=== PATIENT | male | born 1940 | race Caucasian/White ===

== ENCOUNTER → 2024-09-12 | Outpatient (CLI) | payer MEDICARE, BC, SELFPAY ==
[2024-09-12 14:45] LABS: Misc Send Out* See Sep Rpt
[2024-09-12 16:08] LABS: Basophils # (Auto) 0.1 Thou/mm3 (0.0-0.2); Basophils % (Auto) 1 % (0-2.5); Eosinophils # (Auto) 0.3 Thou/mm3 (0.0-0.5); Eosinophils % (Auto) 5 % (0-10); Hemoglobin 14.6 g/dL (13.5-16.0); Immature Granulocytes % (Auto) 0 % (0-0); Immature Granulocytes Auto 0.02 Thou/mm3 (0.00-0.00); Lymphocytes % (Auto) 14 % (10-50); Mean Corpuscular Hemoglobin 30.7 pg (25.0-35.0); Mean Corpuscular Volume 90 fL (80-100); Monocytes # (Auto) 0.7 Thou/mm3 (0.0-0.8); Monocytes % (Auto) 11 % (0-12); Neutrophils # (Auto) 4.5 Thou/mm3 (1.8-7.7); Neutrophils % (Auto) 69 % (37-80); Nucleated Red Blood Cell % 0 /100 WBC (0); Platelet Count 376 Thou/mm3 (140-440); RDW Standard Deviation 40.7 fL (35.1-43.9); Red Blood Count 4.76 Miln/mm3 (4.50-5.90); White Blood Count 6.6 Thou/mm3 (3.8-10.6)
[2024-09-12 17:09] LABS: Folate > 24.00 ng/mL (>5.38); Vitamin B12 530 pg/mL (211-911)
[2024-09-19 06:27] LABS: Vitamin B1 (Thiamine)* 10 nmol/L (8-30)
[2024-10-03 09:08] LABS: Homocysteine* 21.3 umol/L (<11.4); Methylmalonic Acid, GC/MS/MS* 515 nmol/L (85-423); Zinc, Plasma* 53 mcg/dL (60-130)
== END | disposition home or self-care (01) ==
LOC: COPL 14:13
PROVIDERS: PCP Nurse Practitioner Family; Referring Provider Nurse Practitioner Family; Visit Provider Nurse Practitioner Family
DX: R53.82 Chronic fatigue, unspecified (principal); R63.0 Anorexia
CPT/HCPCS: 36415; 82607; 82746; 83090; 83520; 83921; 84425; 84630; 85025

== ENCOUNTER → 2024-09-27 | Outpatient (CLI) | payer MEDICARE, BC, SELFPAY ==
[2024-09-27 15:16] LABS: Cholesterol 188 mg/dL (132-200); Glucose Estimated Average 120 mg/dL (80-131); HDL Cholesterol 93 mg/dL (40-60); Hemoglobin A1C 5.8 % Hgb (4.8-6.0); LDL Cholesterol,Calculated 44 mg/dL (0-130); Magnesium 2.3 mg/dL (1.6-2.6); Triglycerides 256 mg/dL (30-150)
[2024-09-27 15:18] LABS: Vitamin D 25 Hydroxy Total 21.9 ng/mL (7.3-40.2)
[2024-09-27 15:18] LABS: Creatinine MALB Rnd Ur 21 mg/dL (30-125); Microalbumin, Random Urine < 3 mg/L (0-300)
[2024-09-27 15:20] LABS: Ferritin 314 ng/mL (10.5-307.3); PSA Medicare Annual Scrn 1.91 ng/mL (0-4.00)
== END | disposition home or self-care (01) ==
LOC: COPL 14:03
PROVIDERS: PCP Nurse Practitioner Family; Referring Provider Nurse Practitioner Family; Visit Provider Nurse Practitioner Family
DX: I10 Essential (primary) hypertension (principal); E78.5 Hyperlipidemia, unspecified; Z12.5 Encounter for screening for malignant neoplasm of prostate; R79.9 Abnormal finding of blood chemistry, unspecified
CPT/HCPCS: 36415; 80061; 82043; 82306; 82570; 82728; 83036; 83735; 84153; G0103

== ENCOUNTER → 2024-09-30 | Outpatient (CLI) | payer MEDICARE, BC, SELFPAY ==
[2024-09-30 10:37] LABS: Misc Send Out* See Sep Rpt
== END | disposition home or self-care (01) ==
LOC: COPL 10:22
PROVIDERS: PCP Family Medicine; Referring Provider Nurse Practitioner Family; Visit Provider Nurse Practitioner Family
DX: R79.9 Abnormal finding of blood chemistry, unspecified (principal)
CPT/HCPCS: 84255; 84590

== ENCOUNTER → 2024-10-01 | Outpatient (CLI) | payer MEDICARE, BC, SELFPAY ==
[2024-10-04 06:44] LABS: Fecal Globin Result DETECTED (NOT DETECTED)
== END | disposition home or self-care (01) ==
LOC: SLDO 08:06
PROVIDERS: PCP Family Medicine; Referring Provider Nurse Practitioner Family; Visit Provider Nurse Practitioner Family
DX: Z12.11 Encounter for screening for malignant neoplasm of colon (principal)
CPT/HCPCS: 82274; G0328

== ENCOUNTER → 2024-10-18 | Outpatient (CLI) | payer MEDICARE, SELFPAY ==
[2024-10-28 06:42] LABS: Calprotectin, Stool* 26 mcg/g; Fecal Globin Result NOT DETECTED (NOT DETECTED)
== END | disposition home or self-care (01) ==
LOC: SLDO 12:03
PROVIDERS: Referring Provider Nurse Practitioner Family; Visit Provider Nurse Practitioner Family
DX: R19.5 Other fecal abnormalities (principal)
CPT/HCPCS: 82274; 83993; G0328

== ENCOUNTER → 2024-12-25 | Outpatient (CLI) | payer MEDICARE, BC, SELFPAY ==
[2024-12-29 13:47] LABS: PSA, Free <0.10 ng/mL; PSA, Total 0.9 ng/mL (< OR = 4.0)
== END | disposition home or self-care (01) ==
LOC: COPL 10:21
PROVIDERS: PCP Family Medicine; Referring Provider Urology; Visit Provider Urology
DX: N40.1 Benign prostatic hyperplasia with lower urinary tract symptoms (principal)
CPT/HCPCS: 36415; 84153; 84154

== ENCOUNTER → 2025-01-03 | Outpatient (BNVA) | payer MEDICARE, BC, SELFPAY | END | disposition home or self-care (01) | PROVIDERS: PCP Internal Medicine; Referring Provider Internal Medicine; Visit Provider Urology | DX: Z09 Encounter for follow-up examination after completed treatment for conditions other than malignant neoplasm (principal); E78.5 Hyperlipidemia, unspecified; K21.9 Gastro-esophageal reflux disease without esophagitis | CPT/HCPCS: 81003; 99212; G0463 ==

== ENCOUNTER 2025-08-14 08:36 | Emergency (ER) | payer MEDICARE, BC, SELFPAY ==
--- NOTE | 2025-08-14 | XR_ITS ---
Examination: MRI left foot, without contrast Date and time of exam: August 14, 2025, 1419 hours INDICATIONS: Left foot pain 2 weeks, swelling and pain involving the third digit, plain film left foot this morning osteomyelitis involving the third metatarsal head Technique: Multiple axial sagittal and coronal images of the left foot have been obtained with the Siemens high-resolution 1.5 Sari MRI scanner. Images obtained include T2-weighted fat-suppressed sagittal sections, TR 3500, TE 46, T2 weighted coronal fat suppressed images, TR 3050, TE 84, T2-weighted transverse fat suppressed images, TR 3260, TE 63, proton density transverse images, TR 4720 TE 46, and T1 weighted coronal images, TR 560, TE 13. Findings: Cortical erosions destroying the third metatarsal head, axial image 13, sagittal image 15 No soft tissue abscess Digits appear intact Plantar fascia intact Thickening of the Achilles tendon Sinus Tarsi syndrome IMPRESSION: Cortical bone destruction consistent with osteomyelitis third metatarsal head
[2025-08-14 08:41] VITALS: BP 175/85; PULSE 80; RESP 18; TEMP 36.9; O2SAT 95; BMI 22.6
--- NOTE | 2025-08-14 08:45 | XR_ITS ---
Examination: Duplex scan of the lower extremity, unilateral left complete Date and time of exam: August 14, 2025, 10:21 a.m. INDICATIONS: Left foot pain beginning 3 weeks ago Technique: Duplex scan of the extremity veins using B-mode/grayscale imaging and Doppler spectral analysis and color flow Attention is directed to internal echogenicity, compression and augmentation involving these veins, color flow assessment, spectral analysis Findings: Major deep venous structures in the extremity demonstrate normal course and caliber. There is no evidence of deep vein thrombosis. Normal color flow and spectral analysis Impression: Negative for DVT..
--- NOTE | 2025-08-14 08:45 | XR_ITS ---
EXAMINATION: Ankle, left 3 views. Technique: Ankle AP, oblique, lateral 3 views Date and time of exam: August 14, 2025, 0855 hours INDICATION: Left ankle pain for 2 weeks FINDINGS: Bimalleolar soft tissue swelling No fracture Soft tissue vascular calcification IMPRESSION: No fracture, no cortical bone destruction
--- NOTE | 2025-08-14 08:45 | XR_ITS ---
Examination: Foot, left, 3 views Technique: AP, oblique, lateral views foot, 3 views Date and time of exam: August 14, 2025, 0855 hours INDICATIONS: Left foot pain 2 weeks FINDINGS: Prominent hallux valgus and bunion deformity with moderate osteoarthritis first metatarsophalangeal joint Erosions involving the distal third metatarsal head No fracture Soft tissue vascular calcification IMPRESSION: Osteomyelitis involving the third metatarsal head, suggest MRI foot without contrast follow-up
--- NOTE | 2025-08-14 10:08 | PD.EDRME ---
Rapid Medical Screening Exam RME Arrival date/time: 08/14/25 08:36 85-year-old male presents Emergency Department today for complaint of atraumatic left foot pain x 2 weeks Chief Complaint: Ankle/Foot Injury Time Seen by Provider: 08/14/25 08:42 Vital signs: Vital Signs Temperature 98.5 F 08/14/25 08:41 Pulse Rate 80 08/14/25 08:41 Respiratory Rate 18 08/14/25 08:41 Blood Pressure 175/85 H 08/14/25 08:41 Pulse Oximetry (%) 95 08/14/25 08:41 Oxygen Delivery Method Room Air 08/14/25 08:41 Vital signs reviewed by provider: Yes Exam: On exam patient well-appearing does not appear ill or toxic Clinical Impression: Lab work and imaging ordered
[2025-08-14 10:50] LABS: Lactate (Lactic Acid) 2.6 mMol/L (0.4-2.0)
[2025-08-14 10:51] LABS: Basophils # (Auto) 0.1 Thou/mm3 (0.0-0.2); Basophils % (Auto) 1 % (0-2.5); Eosinophils # (Auto) 0.2 Thou/mm3 (0.0-0.5); Eosinophils % (Auto) 2 % (0-10); Hematocrit 46.4 % (41.0-53.0); Hemoglobin 15.3 g/dL (13.5-16.0); Immature Granulocytes Auto 0.03 Thou/mm3 (0.00-0.00); Lymphocytes # (Auto) 1.4 Thou/mm3 (1.0-4.8); Lymphocytes % (Auto) 14 % (10-50); Mean Corpuscular HGB Conc 33.0 g/dl (31.0-37.0); Mean Corpuscular Hemoglobin 30.7 pg (25.0-35.0); Mean Corpuscular Volume 93 fL (80-100); Monocytes # (Auto) 0.9 Thou/mm3 (0.0-0.8); Monocytes % (Auto) 9 % (0-12); Neutrophils # (Auto) 7.0 Thou/mm3 (1.8-7.7); Neutrophils % (Auto) 74 % (37-80); Nucleated Red Blood Cell # 0.00 Thou/mm3 (0.00-0.00); Nucleated Red Blood Cell % 0 /100 WBC (0); Platelet Count 215 Thou/mm3 (140-440); RDW Standard Deviation 47.8 fL (35.1-43.9); Red Blood Count 4.98 Miln/mm3 (4.50-5.90); White Blood Count 9.5 Thou/mm3 (3.8-10.6)
[2025-08-14 10:57] VITALS: BP 190/96; PULSE 79; RESP 16; TEMP 37.1; O2SAT 97
[2025-08-14 11:07] LABS: INR 1.0 (0.9-1.3); Prothrombin Time 10.3 Seconds (9.0-12.2)
[2025-08-14 11:30] LABS: Alanine Aminotransferase 16 U/L (10-49); Albumin, Serum 4.0 gm/dL (3.4-4.8); Albumin/Globulin Ratio 2.4 (1.2-2.2); Alkaline Phosphatase 107 U/L (46-116); Anion Gap 9 (7-16); Aspartate Amino Transferase 28 U/L (0-34); BUN/Creatinine Ratio 7 Ratio (12-20); Bilirubin,Total 0.4 mg/dL (0.3-1.2); Blood Urea Nitrogen 6 mg/dL (9-23); C-Reactive Protein < 0.5 mg/dL (0.0-0.9); Calcium 8.6 mg/dL (8.3-10.6); Calcium (Corrected) 8.6 mg/dL (8.5-10.1); Carbon Dioxide 28.5 mMol/L (20.0-31.0); Chloride 104 mMol/L (98-107); Creatinine (Component) 0.9 mg/dL (0.6-1.3); Estimated Creatinine Clearance 55.9 mL/min (>60); Globulin 1.7 gm/dL (2.3-3.5); Glucose 74 mg/dL (74-106); Osmolality,Calculated 277 (275-295); Potassium 4.1 mMol/L (3.4-5.1); Procalcitonin 0.10 ng/ml (0.0-0.49); Sodium 141 mMol/L (136-145); Total Protein 5.7 gm/dL (5.7-8.2); eGFR > 60 See Note
[2025-08-14 12:27] LABS: Sed Rate (ESR) 10 mm/hr (0-20)
[2025-08-14 13:48] LABS: Reflex Lactate? Y
[2025-08-14 15:34] VITALS: BP 157/102; PULSE 85; RESP 18; TEMP 37.1; O2SAT 98
[2025-08-14 15:42] LABS: Lactic Acid, 3 HR 2.5 mMol/L (0.4-2.0)
[2025-08-14 15:57] VITALS: BP 147/78
--- NOTE | 2025-08-14 16:35 | EDNOTE_ITS ---
Lower Extremity Injury RME/HPI General Chief Complaint: Ankle/Foot Injury Stated Complaint: LEFT FOOT PAIN. UNKNOWN INJURY Time Seen by Provider: 08/14/25 08:42 Arrival date/time: 08/14/25 08:36 Limitations: no limitations RME / HPI RME / HPI Narrative: 08/14/25 08:36 85-year-old male presents Emergency Department today for complaint of atraumatic left foot pain x [address] RIVERA MAIN ED EVALUATION: 85 year old male with history of GERD presents to the ED for evaluation of left foot pain beginning 2 weeks ago. Pain described as aching in sensation that moves up to the ankle area, rating as moderate. Denies any injuries or history of similar pain. No other associated symptoms or complaints. Exam: On exam patient well-appearing does not appear ill or toxic Impression: Lab work and imaging ordered Related Data Previous Rx's ?Medication ?Instructions ?Recorded amoxicillin 875 mg-potassium 1 tab PO BID INFECTION #2 0 tabs 08/14/25 clavulanate 125 mg tablet hydrocodone 5 mg-acetaminophen 325 1 tab PO Q8H PRN pa in #14 tabs 08/14/25 mg tablet Allergies Allergy/AdvReac Type Severity Reaction Status Date / Time NKA* Allergy Uncoded 08/14/25 08:37 Review of Systems Review of Systems Systems Reviewed: All systems reviewed, normal except as documented Past Medical History Past Medical History RESPIRATORY: Positive Respiratory Disorders ENT: Positive Cataracts OTHER HISTORY: Positive Chicken Pox Social History SMOKING STATUS: Never smoker ED Exam General Limitations: Present no limitations General appearance: Present alert and in no apparent distress Head Head exam: Present atraumatic, normocephalic and normal inspection Eye Eye exam: Present normal appearance and EOMI ENT ENT exam: Present normal exam, normal oropharynx and mucous membranes moist Neck Neck exam: Present normal inspection, full ROM and trachea midline Chest Chest inspection: Present normal inspection Respiratory Respiratory exam: Present normal lung sounds bilaterally Cardiovascular Cardiovascular exam: Present regular rate and normal rhythm Extremities Exam Extremities exam: Present full ROM and other (Left foot with good capillary refill, sensation intact, dorsalis pedis pulse 1+, pain in the plantar surface, tenderness palpable at the ball of the foot) Back Exam Back exam: Present normal inspection and full ROM Neurological Exam Neurological exam: Present alert, oriented X3 and CN II-XII intact Psychiatric Psychiatric exam: Present normal affect and normal mood Skin Skin exam: Present warm, dry, intact and normal color Course Quality Measures none Orders Category Date Time Status MRI Screening NOW Care 08/14/25 12:08 Completed MR foot LT wo con Stat Exams 08/14/25 Completed US venous doppler LE LT Stat Exams 08/14/25 08:45 Completed XR ankle comp LT min 3V Stat Exams 08/14/25 08:45 Completed XR foot comp LT min 3V Stat Exams 08/14/25 08:45 Completed Blood Culture (Lab) Stat Lab 08/14/25 10:38 Received CBC Stat Lab 08/14/25 10:38 Completed CMP [Comprehensive Metabolic Panel] Stat Lab 08/14/25 10:38 Completed CRP [C-Reactive Protein] Stat Lab 08/14/25 10:38 Completed ESR [Sed Rate (ESR)] Stat Lab 08/14/25 10:38 Completed Lactic Acid [Lactate (Lactic Acid)] Stat Lab 08/14/25 10:38 Completed Lactic Acid, 3 HR Stat Lab 08/14/25 15:30 Completed PT [Prothrombin Time with INR] Stat Lab 08/14/25 10:38 Completed Procalcitonin Stat Lab 08/14/25 10:38 Completed Vital Signs Vital signs: Vital Signs Temperature 98.5 F 08/14/25 08:41 Pulse Rate 80 08/14/25 08:41 Respiratory Rate 18 08/14/25 08:41 Blood Pressure 175/85 H 08/14/25 08:41 Pulse Oximetry (%) 95 08/14/25 08:41 Oxygen Delivery Method Room Air 08/14/25 08:41 Pulse ox is 95% on room air which is adequate. Extremity Injury, Lower MDM Narrative MDM Narrative:: Oneyda Sue am scribing for and in the presence of Dr. Rivera. Patient data External records reviewed:: [facility] previous records Clinical information provided by:: patient Social determinants that could affect healthcare access:: none Patient has the following chronic illnesses:: GERD How is presenting disease/condition affected by chronic disease/condition?: uneffected by Evaluation data The following diagnostics were reviewed and interpreted by me:: lab results and radiology exam(s) Lab and/or radiology exams considered but not ordered:: None Interpretation Summary: Ordering Physician: Jah Rivera MD Date of Service: 08/14/25 Procedure(s): MR foot LT wo con Accession Number(s): [id number] cc: Sinan Marina; Jah Rivera MD; Bertram Roman MD~ Examination: MRI left foot, without contrast Date and time of exam: August 14, 2025, 1419 hours INDICATIONS: Left foot pain 2 weeks, swelling and pain involving the third digit, plain film left foot this morning osteomyelitis involving the third metatarsal head Technique: Multiple axial sagittal and coronal images of the left foot have been obtained with the Siemens high-resolution 1.5 Sari MRI scanner. Images obtained include T2-weighted fat-suppressed sagittal sections, TR 3500, TE 46, T2 weighted coronal fat suppressed images, TR 3050, TE 84, T2-weighted transverse fat suppressed images, TR 3260, TE 63, proton density transverse images, TR 4720 TE 46, and T1 weighted coronal images, TR 560, TE 13. Findings: Cortical erosions destroying the third metatarsal head, axial image 13, sagittal image 15 No soft tissue abscess Digits appear intact Plantar fascia intact Thickening of the Achilles tendon Sinus Tarsi syndrome IMPRESSION: Cortical bone destruction consistent with osteomyelitis third metatarsal head Dictated By: Bertram Roman MD Signed By: <Electronically signed by Bertram Roman MD in OV> 08/14/25 1455 Ordering Physician: Maricruz ADAM)Jens NP Date of Service: 08/14/25 Procedure(s): XR ankle comp LT min 3V Accession Number(s): [id number] cc: Sinan Marina; Maricruz ADAM)Jens NP; Bertram Roman MD~ EXAMINATION: Ankle, left 3 views. Technique: Ankle AP, oblique, lateral 3 views Date and time of exam: August 14, 2025, 0855 hours INDICATION: Left ankle pain for 2 weeks FINDINGS: Bimalleolar soft tissue swelling No fracture Soft tissue vascular calcification IMPRESSION: No fracture, no cortical bone destruction Dictated By: Bertram Roman MD Signed By: <Electronically signed by Bertram Roman MD in OV> 08/14/25 0942 Ordering Physician: Maricruz ADAM)Jens NP Date of Service: 08/14/25 Procedure(s): XR foot comp LT min 3V Accession Number(s): [id number] cc: Sinan Marina; Maricruz JORDAN,Jens JORDAN; Bertram Roman MD~ Examination: Foot, left, 3 views Technique: AP, oblique, lateral views foot, 3 views Date and time of exam: August 14, 2025, 0855 hours INDICATIONS: Left foot pain 2 weeks FINDINGS: Prominent hallux valgus and bunion deformity with moderate osteoarthritis first metatarsophalangeal joint Erosions involving the distal third metatarsal head No fracture Soft tissue vascular calcification IMPRESSION: Osteomyelitis involving the third metatarsal head, suggest MRI foot without contrast follow-up Dictated By: Bertram Roman MD Signed By: <Electronically signed by Bertram Roman MD in OV> 08/14/25 0943 Ordering Physician: Jens Alcantara NP, NP Date of Service: 08/14/25 Procedure(s): US venous doppler LE LT Accession Number(s): [id number] cc: Sinan Marina; Maricruz JORDAN,Jens JORDAN; Bertram Roman MD~ Examination: Duplex scan of the lower extremity, unilateral left complete Date and time of exam: August 14, 2025, 10:21 a.m. INDICATIONS: Left foot pain beginning 3 weeks ago Technique: Duplex scan of the extremity veins using B-mode/grayscale imaging and Doppler spectral analysis and color flow Attention is directed to internal echogenicity, compression and augmentation involving these veins, color flow assessment, spectral analysis Findings: Major deep venous structures in the extremity demonstrate normal course and caliber. There is no evidence of deep vein thrombosis. Normal color flow and spectral analysis Impression: Negative for DVT.. Dictated By: Bertram Roman MD Signed By: <Electronically signed by Bertram Roman MD in OV> 08/14/25 1105 Medications / Prescriptions Medications or Prescriptions considered but not ordered:: None Medication administrations:: None Consultations Consultation(s) initiated? (list below): No Diagnosis Most likely diagnosis given after review of the tests above:: Osteomyelitis Admission Indicated Admission indicated?: not indicated Admission Request Was there a request for admission?: No Disposition Plan Disposition Plan: Discharge Discharge Attestation Discharge Attestation: The patient and all family members were given an opportunity to ask questions and understood the discharge instructions. Discharge instructions specifically effects, indications for sooner follow up or return to the emergency department, and the expected course of current diagnosis. Patient condition: Stable Discharge Plan Plan Patient Disposition: HOME (Self Care) Patient condition on transfer: Stable Prescriptions/Referrals Prescriptions/Med Rec: New amoxicillin-pot clavulanate 875-125 mg tablet 1 tab PO BID MDD 2 Qty: 20 0RF hydrocodone-acetaminophen 5-325 mg tablet 1 tab PO Q8H MDD 3 PRN (Reason: pain) Qty: 14 0RF Referrals: Sinan Marina [Primary Care Provider] - In 1 week Problem List Clinical Impression: Osteomyelitis Patient/Caregiver Discharge Instructions Discharge Activity: activity as tolerated Education Materials: Osteomyelitis Dc Additional Instructions: Follow-up with 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 Take medications as prescribed. Print Language: Pashto Stand Alone Forms: Eliza Award Info., Patient Portal Info Letter
== END 2025-08-14 16:06 | disposition home or self-care (01) ==
PROVIDERS: Nurse Practitioner Primary Care; Emergency Provider Family Medicine; PCP Internal Medicine
DX: S99.922A Unspecified injury of left foot, initial encounter (principal); X58.XXXA Exposure to other specified factors, initial encounter
CPT/HCPCS: 36415; 73610; 73630; 73718; 80053; 83605; 84145; 85025; 85610; 85652; 86140; 87040; 93971; 99283